=== PATIENT | female | born 2000 | race Caucasian/White ===

== ENCOUNTER → 2024-03-09 17:01 | Outpatient (REF) | payer BC, SELFPAY | LOC: RCS 17:01 | PROVIDERS: ATTENDING PHYSICIAN Nurse Practitioner; FAMILY PHYSICIAN Internal Medicine | DX: G90.A Postural orthostatic tachycardia syndrome [POTS] (principal) | CPT/HCPCS: 93306 ==

== ENCOUNTER → 2024-04-22 15:07 | Outpatient (REF) | payer BC, SELFPAY | LOC: WDC 15:07 | PROVIDERS: ATTENDING PHYSICIAN Nurse Practitioner | DX: N60.19 Diffuse cystic mastopathy of unspecified breast (principal); Z80.3 Family history of malignant neoplasm of breast | CPT/HCPCS: 76641 ==